=== PATIENT | male | born 1970 | race Two or more races ===

== ENCOUNTER 2024-09-27 06:00 | Day surgery (SDC) | payer OTHER ==
[2024-09-27] MEDS ORDERED: DIPHENHYDRAMINE HCL 50 MG/ML VIAL 1ML IV ONE (10:45)
[2024-09-27] MEDS ORDERED: MIDAZOLAM HCL 2 MG/2 ML VIAL IV ONE (10:45)
[2024-09-27] MEDS ORDERED: fentaNYL CITRATE 50 MCG/ML AMPUL IV PUSH ONE (10:45)
== END 2024-09-27 11:40 | disposition home or self-care (01) ==
LOC: AMB-ENDOS 06:00 → CIR.AMB 13:00
PROVIDERS: ATTEND Surgery
DX: D12.0 Benign neoplasm of cecum (principal); K63.5 Polyp of colon